=== PATIENT | female | born 1945 | race Caucasian/White ===

== ENCOUNTER 2020-11-12 00:07 | Emergency (ER) | payer MEDICARE, OTHER ==
[~2020-11-12] VITALS: Ht 157.5 cm; Wt 50.8 kg
[2020-11-12 00:19] VITALS: BP 166/60
[2020-11-12] MEDS ORDERED: diphenhydrAMINE HCL 25 MG CAPSULE ONE (00:26)
[2020-11-12] MEDS: DIPHENHYDRAMINE HCL 12.5 MG/5 ML UDC PO ONE (00:29)
== END 2020-11-12 01:05 | disposition home or self-care (01) ==
LOC: ER 00:10
DX: R07.0 Pain in throat (principal); T50.995A Adverse effect of other drugs, medicaments and biological substances, initial encounter; Y92.89 Other specified places as the place of occurrence of the external cause
CPT/HCPCS: 99282; Q0163 ×2